=== PATIENT | male | born 1990 | race Two or more races ===

== ENCOUNTER 2022-11-23 19:05 | Emergency (ER) | payer SELFPAY ==
[2022-11-23] MEDS ORDERED: Proparacaine 0.5% Ophth Soln 15 ML Bottle EYEBOTH STA (19:38)
[2022-11-23] MEDS ORDERED: Fluorescein 1 MG Ophth Strip EYEBOTH STA (19:39)
[2022-11-23] MEDS ORDERED: Erythromycin Base 0.5% Ophth Oint 1 GM Tube EYELF STA (20:03)
[2022-11-23] MEDS ORDERED: Erythromycin Base 0.5% Ophth Oint 1 GM Tube EYERT STA (20:04)
== END 2022-11-23 20:37 | disposition home or self-care (01) ==
LOC: JD.ED 19:05
DX: S05.01XA Injury of conjunctiva and corneal abrasion without foreign body, right eye, initial encounter (principal); S05.02XA Injury of conjunctiva and corneal abrasion without foreign body, left eye, initial encounter; F17.290 Nicotine dependence, other tobacco product, uncomplicated; Z86.16 Personal history of COVID-19
CPT/HCPCS: 99282; A9270; J3490